=== PATIENT | male | born 1995 | race Caucasian/White ===

== ENCOUNTER 2019-03-26 08:20 | Emergency (ER) | payer MEDICAID, MEDICARE, OTHER ==
[~2019-03-26] VITALS: Ht 188 cm; Wt 67.3 kg
--- NOTE | 2019-03-26 08:38 | NUR ---
PT PRESENTED TO ED WITH LEFT KNEE PAIN SINCE TUESDAY. PT STATES HIS KNEE GIVES OUT AND HAS NUMBNESS THAT GOES DOWN TO HIS FOOT. PT A&OX4. PA INTO SEE PT AND ORDERS RECEIVE.D
[2019-03-26] MEDS ORDERED: KETOROLAC 30 MG/1 ML IM ONE (09:00)
--- NOTE | 2019-03-26 09:05 | NUR ---
PT TAKEN TO RADIOLOGY
[2019-03-26] MEDS ORDERED: KETOROLAC 60 MG/2 ML ONE (09:13)
[2019-03-26 10:38] VITALS: BP 116/67
--- NOTE | 2019-03-26 10:39 | NUR ---
TASK RN: Patient/Caregiver given discharge instructions and they have confirmed that they understand the instructions. Patient ambulatory with crutches
== END 2019-03-26 11:03 | disposition home or self-care (01) ==
LOC: ED 10:27
DX: M25.562 Pain in left knee (principal)
CPT/HCPCS: 73564; 96372; 99283; J1885

== ENCOUNTER 2020-09-07 12:21 | Emergency (ER) | payer SELFPAY ==
[~2020-09-07] VITALS: Ht 185.4 cm; Wt 62.4 kg
--- NOTE | 2020-09-07 12:47 | NUR ---
PT AMBULATED BACK TO ROOM WITHOUT DIFFICULTY.
--- NOTE | 2020-09-07 13:00 | NUR ---
PT REPORTS HE SMOKED WEED A COUPLE NIGHTS AGO AND THEN FELT HE WAS HAVING A PANIC ATTACK. SO HE STOPPED DRINKING & SMOKING FOR A FEW DAYS. SINCE THEN, FEELING NAUSEA, DECREASED APPETITE, CHILLS, SWEATING, & MUSCLE ACHES. NO KNOWN EXPOSURE TO COVID. DROPLET PLUS PRECAUTIONS IN PLACE. BLANKET PROVIDED TO PT. NO S/S OF DISTRESS AT THIS TIME.
--- NOTE | 2020-09-07 13:05 | NUR ---
RESIDENT AT BS.
--- NOTE | 2020-09-07 13:46 | NUR ---
XR AT BS.
--- NOTE | 2020-09-07 14:43 | NUR ---
PT CONCERNED ABOUT SEDIMENT / "WHITE STRINGY STUFF" IN HIS URINE. ERP NOTIFIED. UA ORDERED.
[2020-09-07 14:49] LABS: BASOPHILS % (AUTO) 1 % (0-1); EOSINOPHILS % (AUTO) 0 % (1-7); LYMPHOCYTES % (AUTO) 18 % (22-44); MEAN CORPUSCULAR HGB CONC 33.8 g/dL (33.2-36.2); MEAN PLATELET VOLUME 9.5 fL (7.4-10.4); MONOCYTES % (AUTO) 6 % (2-9); NEUTROPHILS % (AUTO) 75 % (42-75); PLATELET COUNT 213 x10^3/uL (130-400); RED BLOOD COUNT 5.88 x10^6/uL (4.38-5.82); RED CELL DISTRIBUTION WIDTH 14.4 % (9.4-14.8)
[2020-09-07 14:55] LABS: ANION GAP 6 mmol/L (5-15); CALCIUM 9.6 mg/dL (8.5-10.1); CHLORIDE 107 mmol/L (98-107)
[2020-09-07 15:01] LABS: MD NO
[2020-09-07 15:05] LABS: MICROSCOPIC INDICATED
--- NOTE | 2020-09-07 15:55 | NUR ---
ERP AT FOR RECHECK.
[2020-09-07 16:17] VITALS: BP 129/80
== END 2020-09-07 16:19 | disposition home or self-care (01) ==
LOC: ED 16:00
DX: F41.1 Generalized anxiety disorder (principal); R07.89 Other chest pain; R00.2 Palpitations; R10.9 Unspecified abdominal pain; F17.290 Nicotine dependence, other tobacco product, uncomplicated
CPT/HCPCS: 36415; 71045; 80048; 81001; 85025; 87086; 93005; 99285

== ENCOUNTER 2020-11-11 18:23 | Emergency (ER) | payer SELFPAY ==
[~2020-11-11] VITALS: Ht 190.5 cm; Wt 64.9 kg
[2020-11-11 19:27] LABS: BASOPHILS % (AUTO) 0 % (0-1); EOSINOPHILS % (AUTO) 1 % (1-7); LYMPHOCYTES % (AUTO) 26 % (22-44); MEAN CORPUSCULAR HGB CONC 34.1 g/dL (33.2-36.2); MEAN PLATELET VOLUME 9.2 fL (7.4-10.4); MONOCYTES % (AUTO) 14 % (2-9); NEUTROPHILS % (AUTO) 59 % (42-75); PLATELET COUNT 190 x10^3/uL (130-400); RED BLOOD COUNT 5.25 x10^6/uL (4.38-5.82)
[2020-11-11 19:29] LABS: MD NO
[2020-11-11 19:33] LABS: ANION GAP 7 mmol/L (5-15); CHLORIDE 108 mmol/L (98-107)
[2020-11-11 19:47] LABS: ALANINE AMINOTRANSFERASE 23 U/L (12-78); ALKALINE PHOSPHATASE 121 U/L (45-117); BILIRUBIN,TOTAL 0.6 mg/dL (0.2-1.0); CALCIUM 8.9 mg/dL (8.5-10.1); CREATININE 1.02 mg/dL (0.7-1.3); TOTAL PROTEIN 7.7 g/dL (6.4-8.2)
--- NOTE | 2020-11-11 20:00 | NUR ---
PATIENT RESTING IN BED, SLIGHTLY ANXIOUS BUT IN NAD. CALL FELIX IN REACH. MONITORING EQUIPMENT APPLIED TO PATIENT. VS REMAIN STABLE WITH SLIGHTLY ELEVATED BP. SAFETY MAINTAINED
[2020-11-11 21:18] VITALS: BP 136/85
--- NOTE | 2020-11-11 21:18 | NUR ---
DSICHARGE INSTRUCTIONS REVIEWED WITH PATIENT. NO FURTHER QUESTIONS AT THIS TIME. IN NAD. VS REMAIN STABLE ON RA. PRESCRIPTION DIRECTLY HANDED TO PATIENT. ALL PERSONAL BELONGINGS WITH PATIENT. STEADY GAIT TO LOBBY
== END 2020-11-11 21:27 | disposition home or self-care (01) ==
LOC: ED 19:53
DX: G89.29 Other chronic pain (principal); R10.84 Generalized abdominal pain; T45.0X5A Adverse effect of antiallergic and antiemetic drugs, initial encounter; T44.3X5A Adverse effect of other parasympatholytics [anticholinergics and antimuscarinics] and spasmolytics, initial encounter; R42 Dizziness and giddiness; R00.2 Palpitations; Y92.89 Other specified places as the place of occurrence of the external cause
CPT/HCPCS: 36415; 71045; 80053; 83735; 84443; 85025; 93005; 99285

== ENCOUNTER 2021-03-06 11:08 | Emergency (ER) | payer MEDICAID ==
[~2021-03-06] VITALS: Ht 190.5 cm; Wt 69.4 kg
[2021-03-06 11:28] VITALS: BP 123/75
--- NOTE | 2021-03-06 11:40 | NUR ---
WAREHOUSE TRAINER: PT LEFT AMA, FORMED SIGNED
== END 2021-03-06 11:42 | disposition left against medical advice (07) ==
LOC: ED 11:38
DX: R07.9 Chest pain, unspecified (principal); Z53.21 Procedure and treatment not carried out due to patient leaving prior to being seen by health care provider
CPT/HCPCS: 93005; 99283